=== PATIENT | female | born 1980 ===

== ENCOUNTER 2022-09-10 10:27 | Emergency (ER) | payer OTHER, SELFPAY ==
--- NOTE | ~2022-09-10 | CT_ITS ---
EXAMINATION: CT ABDOMEN AND PELVIS WITHOUT CONTRAST CLINICAL INFORMATION: Nausea and abdominal bloating. COMPARISON: None available. TECHNIQUE: Multidetector volumetric imaging was performed from the superior aspect of the liver through the pubic symphysis. Sagittal and coronal reformatted images were obtained on the technologist's workstation. This CT examination was performed using dose optimization techniques as appropriate, variously including the following: *Automated exposure control *Adjustment of mA and/or kV according to patient size (this includes techniques or standardized protocols for targeted exams where dose is matched to indication/reason for exam; i.e. extremities or head) *Use of iterative reconstruction technique DLP: 796. mGy-cm FINDINGS: LUNG BASES: The visualized lung bases are unremarkable. LIVER, GALLBLADDER, AND BILIARY TREE: The noncontrast liver is normal in size and contour. No biliary ductal dilatation is present. The gallbladder is surgically absent. PANCREAS: No ductal dilatation. SPLEEN: Not enlarged. ADRENAL GLANDS: No adrenal masses. KIDNEYS AND URETERS: The kidneys are symmetric in size. No hydronephrosis or perinephric stranding. BLADDER: Unremarkable. GASTROINTESTINAL TRACT: Wall thickening of the splenic flexure through the sigmoid colon. No significant surrounding inflammatory changes. No small bowel obstruction. Appendix is within normal limits. ABDOMINAL WALL: No significant hernia is appreciated. LYMPH NODES: No bulky abdominal or pelvic lymphadenopathy. VASCULAR: Normal caliber abdominal aorta. PELVIC VISCERA: 4.2 cm hypoattenuating lesion in the left ovary. OSSEOUS STRUCTURES: No destructive bone lesion. CT/CT abdomen pelvis wo IV con IMPRESSION: Wall thickening of the splenic flexure to the sigmoid colon may represent low-grade colitis. No surrounding inflammatory changes. No small bowel obstruction. Advise clinical correlation. 4.2 cm hypoattenuating lesion in the left ovary. This may be further evaluated with nonemergent pelvic ultrasound.
[2022-09-10 10:37] VITALS: BP 180/101; PULSE 90; RESP 20; TEMP 36.6; O2SAT 98; BMI 27.9
[2022-09-10 10:58] LABS: Basophils Percent Auto 0.3 % (0-2); Eosinophils Absolute Auto 0.1 X10*3/uL (0.0-0.4); Hematocrit 42.2 % (37.0-47.0); Hemoglobin 14.2 g/dl (12.0-16.0); Imm Gran Abs Auto 0.02 X10*3/uL (0.00-0.03); Imm Gran Pct Auto 0.3 % (0.0-0.4); Lymphocytes Absolute Auto 1.8 X10*3/uL (1.2-4.9); Lymphocytes Percent Auto 25.8 % (20-40); MANUAL DIFF FLAG NO; Mean Corpuscular HGB Conc 33.6 g/dl (31.0-35.0); Mean Corpuscular Hemoglobin 30.8 pg (27.0-33.0); Mean Corpuscular Volume 91.5 fL (80.0-98.0); Mean Platelet Volume 9.9 fL (9.4-12.3); Monocytes Absolute Auto 0.5 X10*3/uL (0.1-1.2); Monocytes Percent Auto 7.6 % (2-11); Neutrophils Absolute Auto 4.6 x10*3/uL (2.0-8.3); Platelet Count 247 X10*3/uL (160-400); Red Blood Count 4.61 X10*6/uL (4.20-5.50); Red Cell Distribution Width 12.7 % (11.0-16.0)
[2022-09-10 11:18] LABS: Alanine Aminotransferase 17 U/L (0-31); Albumin Level 3.9 g/dL (3.5-5.0); Alkaline Phosphatase 77 U/L (39-117); Anion Gap 13 (12-20); Aspartate Amino Transferase 18 U/L (5-31); Bilirubin Total 0.7 mg/dL (0.0-1.0); Blood Urea Nitrogen 13 mg/dL (9-16); Calcium 9.3 mg/dL (8.4-10.2); Carbon Dioxide 23 mmol/L (22-29); Chloride 109 mmol/L (96-108); Creatinine Clr Calc Pharmacy 149.9; Estimated Glomerular Filt Rate > 60; Glucose Random 97 mg/dL (60-115); Magnesium 1.8 mg/dL (1.6-2.6); Potassium 3.5 mmol/L (3.3-5.1); Sodium 141 mmol/L (135-145); Total Protein 7.4 g/dL (6.5-8.0)
--- NOTE | 2022-09-10 11:42 | ED.ABDPAIN ---
HPI - Abdominal Pain General Chief Complaint: Abdominal Pain Stated Complaint: abd pain and bloating Time Seen by Provider: 09/10/22 12:02 Source: patient Mode of arrival: ambulatory Limitations: no limitations History of Present Illness HPI narrative: This is a 42-year-old female presenting with abdominal bloating eating and soft stool/diarrhea for the past 3 weeks and nausea, vomiting the past few days. Patient reports she decided to come in today because she noted that her stool looked like jelly, and it was very foul smelling. Patient reports about 3 weeks ago she took metronidazole for BV, has been having issues since then. Also reports associated nausea, vomiting and abdominal distension. She reports diffuse abdominal discomfort and she just feels tired and weak. Patient denies fevers, chills, chest pain, shortness of breath, headache, vision changes, dizziness . Related Data Previous Rx's Medication Instructions Recorded loperamide 2 mg capsule 2 mg PO Q6H PRN loose stool #20 09/10/22 caps ondansetron 4 mg disintegrating 4 mg PO Q6H PRN nausea and 09/10/22 tablet vomiting #14 tabs Allergies Allergy/AdvReac Type Severity Reaction Status Date / Time No Known Allergies Allergy Verified 09/10/22 10:39 Review of Systems Review of Systems Constitutional : No Weight loss, No Fever, No Chills, No Fatigue, No Malaise ENT/Mouth : No sore throat, No Rhinorrhea Eyes: No Eye Pain, No Swelling, No Redness Cardiovascular : No Chest Pain, No SOB, No Dyspnea on Exertion, No Orthopnea, No Edema, No Palpitations Respiratory : No Cough, No Sputum, No Wheezing Gastrointestinal : + Nausea, + Vomiting, + Diarrhea, No Constipation, + abdominal Pain, No Hematochezia, No Melena Genitourinary : No Dysuria, No Urinary Frequency, No Hematuria, Musculoskeletal : No joint pain, No Myalgias, No Joint Swelling Skin : No Skin Lesions, No rash Neuro : No Weakness, No Numbness, No Dizziness, No Headache Psych : No Anxiety/Panic, No Depression All other systems reviewed and are negative Yes all other systems are reviewed and are negative [facility] Past Medical History Attestation statement: The following information was validated with the patient. Source: old records reviewed and nursing notes reviewed Social History Social History Alcohol intake: current Alcohol intake frequency: a few times a week Smoked in Last 30 Days: Yes Advance Directives: No Advance Directives Information Provided: No Patient : No Physical Exam ED Vital Signs: Vital Signs - 24 hr 09/10/22 10:37 09/10/22 14:21 Temperature 97.8 F 98.6 F Pulse Rate 90 72 Respiratory Rate 20 18 Blood Pressure 180/101 H 173/104 H Pulse Oximetry 98 99 Oxygen Delivery Method Room Air Room Air BMI result Body Mass Index 27.9 vss patient hypertensive in non med compliant, no headache, vision changes or dizziness concerning for hypertensive emergency. Also likely secondary to pain and discomfort. Appearance: Alert.? Oriented X3.? No acute distress.? Head: Normocephalic, atraumatic, no step-offs or deformities Eyes: Pupils equal, round and reactive to light.? Neck: Normal inspection.? Neck supple.? CVS: Normal heart rate and rhythm.? Pulses normal.? Respiratory: No respiratory distress.? Breath sounds normal.? Abdomen: Soft and lower abdominal discomfort.? Skin: Skin warm and dry.? Normal skin color.? Normal skin turgor.? Extremities: No lower extremity edema.? No calf ttp. 5/5 strength to bilateral upper and lower extremitieBack: No midline tenderness, no C-spine tenderness, full range of motion, no CVA tenderness bilaterally Neuro: Oriented X 3.? No motor deficit.? No sensory deficit. CN 2-12 intact Course Course Course Narrative: This is a rapid medical exam. Deferred additional HPI, ROS, PE to primary provider. 42yo female with history of HTN (noncompliant with medications), cholecystectomy here with intermittent abdominal pain w/ associated diarrhea, nausea, occasional vomiting, frequent urination x months. No fevers, chills, LMP currently Will check labs, UA VSS Reevaluation(s) Reevaluation #1: CBC appears to be within normal limits. Chemistry with no acute findings requiring intervention. Lipase within normal limits. UA without infection. GI panel pending. C diff pending. Time: 15:00 Reevaluation #2: Cdiff negative. GI panel pending and CT abd pelvis pending. Time: 15:31 Reevaluation #3: Patient now complaining of chest pain and shortness of breath troponin and EKG ordered, unlikely ACS based off of patient history likely reflux. GI cocktail ordered. CT of the abdomen and pelvis pending. Time: 16:01 Additional Reevaluation(s): [address] Jenkins if patients CT is normal can be dc home with pcp followup and pending stool studies. Trop pending and ct pending. Sign out to Randi Hernandez Medical Decision Making Medical Decision Making [facility] Narrative: 1523 42-year-old female presents with nausea vomiting, diarrhea, abdominal discomfort. Reports recent antibiotic use Physical exam with lower abdominal mild tenderness on palpation. Otherwise unremarkable physical exam however patient is noted to be hypertensive, history of hypertension however not med compliant. No papilledema, headache, vision changes, dizziness or signs of hypertensive urgency or emergency. Will rule out CT of, electrolyte abnormalities. Likely viral illness. Unlikely acute abdomen. Unlikely appendicitis, cholecystitis, diverticulitis, ovarian cyst, ovarian torsion, pancreatitis, SBP Plan labs, imaging, urine, stool studies. Differential Diagnosis Differential Diagnoses: The differential diagnosis associated with the presentation includes Will rule out CT of, electrolyte abnormalities. Likely viral illness. Unlikely acute abdomen. Unlikely appendicitis, cholecystitis, diverticulitis, ovarian cyst, ovarian torsion, pancreatitis, SBP Admission/Observation Consideration of admission/observation: Escalation of care including admission/observation considered unlikley Consult Healthcare Provider Management of the patient was discussed with: [employer] Operator (Belkis Jenkins ) Lab Data [facility] Lab Attestation statement: I reviewed the patient's lab results. 09/10/22 10:53 09/10/22 10:53 Labs: Lab Results 09/10/22 09/10/22 09/10/22 Range/Units 10:53 10:53 11:46 WBC 7.0 (4.8-10.8) X10*3/uL RBC 4.61 (4.20-5.50) X10*6/uL Hgb 14.2 (12.0-16.0) g/dl Hct 42.2 (37.0-47.0) % MCV 91.5 (80.0-98.0) fL MCH 30.8 (27.0-33.0) pg MCHC 33.6 (31.0-35.0) g/dl RDW 12.7 (11.0-16.0) % Plt Count 247 (160-400) X10*3/uL MPV 9.9 (9.4-12.3) fL Immature Gran % (Auto) 0.3 (0.0-0.4) % Neut % (Auto) 65.0 (45-73) % Lymph % (Auto) 25.8 (20-40) % [place] % (Auto) 7.6 (2-11) % Eos % (Auto) 1.0 (0-4) % Baso % (Auto) 0.3 (0-2) % Lymph # (Auto) 1.8 (1.2-4.9) X10*3/uL [place] # (Auto) 0.5 (0.1-1.2) X10*3/uL Eos # (Auto) 0.1 (0.0-0.4) X10*3/uL Baso # (Auto) 0.0 (0.0-0.2) X10*3/uL Abs Immat Gran (auto) 0.02 (0.00-0.03) X10*3/uL Absolute Neuts (auto) 4.6 (2.0-8.3) x10*3/uL Absolute Nucleated RBC 0.000 (0.0-0.012) X10*3/uL Nucleated RBC % (auto) 0.0 (0.0-0.2) /100WBC Sodium 141 (135-145) mmol/L Potassium 3.5 (3.3-5.1) mmol/L Chloride 109 H (96-108) mmol/L Carbon Dioxide 23 (22-29) mmol/L Anion Gap 13 (12-20) BUN 13 (9-16) mg/dL Creatinine 0.62 (0.5-1.4) mg/dL Estim Creat Clear Calc 149.9 Estimated GFR > 60 Random Glucose 97 (60-115) mg/dL Calcium 9.3 (8.4-10.2) mg/dL Magnesium 1.8 (1.6-2.6) mg/dL Total Bilirubin 0.7 (0.0-1.0) mg/dL AST 18 (5-31) U/L ALT 17 (0-31) U/L Alkaline Phosphatase 77 (39-117) U/L Total Protein 7.4 (6.5-8.0) g/dL Albumin 3.9 (3.5-5.0) g/dL Lipase 10 (8-78) U/L Urine Color Dark Yellow Urine Appearance Clear Urine pH 6.0 (5.0-9.0) Ur Specific [place] >= 1.030 H (1.005-1.025) Urine Protein 30 (1+) H (Neg-Trace) mg/dL Urine Glucose (UA) Negative (Negative) mg/dL Urine Ketones Negative (Negative) mg/dL Urine Blood Small (1+) H (Negative) Urine Nitrite Negative (Negative) Ur Leukocyte Esterase Negative (Negative) Urine RBC 6-10 H (0-2) /HPF Urine WBC 0-5 (0-5) /HPF Ur Squamous Epith Cells 0-2 (0-2) /HPF Urine Bacteria None Seen (None Seen) Hyaline Casts 0-2 (0-2) /LPF C. difficile Tox B Gene (Negative) 09/10/22 Range/Units 14:14 WBC (4.8-10.8) X10*3/uL RBC (4.20-5.50) X10*6/uL Hgb (12.0-16.0) g/dl Hct (37.0-47.0) % MCV (80.0-98.0) fL MCH (27.0-33.0) pg MCHC (31.0-35.0) g/dl RDW (11.0-16.0) % Plt Count (160-400) X10*3/uL MPV (9.4-12.3) fL Immature Gran % (Auto) (0.0-0.4) % Neut % (Auto) (45-73) % Lymph % (Auto) (20-40) % [place] % (Auto) (2-11) % Eos % (Auto) (0-4) % Baso % (Auto) (0-2) % Lymph # (Auto) (1.2-4.9) X10*3/uL [place] # (Auto) (0.1-1.2) X10*3/uL Eos # (Auto) (0.0-0.4) X10*3/uL Baso # (Auto) (0.0-0.2) X10*3/uL Abs Immat Gran (auto) (0.00-0.03) X10*3/uL Absolute Neuts (auto) (2.0-8.3) x10*3/uL Absolute Nucleated RBC (0.0-0.012) X10*3/uL Nucleated RBC % (auto) (0.0-0.2) /100WBC Sodium (135-145) mmol/L Potassium (3.3-5.1) mmol/L Chloride (96-108) mmol/L Carbon Dioxide (22-29) mmol/L Anion Gap (12-20) BUN (9-16) mg/dL Creatinine (0.5-1.4) mg/dL Estim Creat Clear Calc Estimated GFR Random Glucose (60-115) mg/dL Calcium (8.4-10.2) mg/dL Magnesium (1.6-2.6) mg/dL Total Bilirubin (0.0-1.0) mg/dL AST (5-31) U/L ALT (0-31) U/L Alkaline Phosphatase (39-117) U/L Total Protein (6.5-8.0) g/dL Albumin (3.5-5.0) g/dL Lipase (8-78) U/L Urine Color Urine Appearance Urine pH (5.0-9.0) Ur Specific [place] (1.005-1.025) Urine Protein (Neg-Trace) mg/dL Urine Glucose (UA) (Negative) mg/dL Urine Ketones (Negative) mg/dL Urine Blood (Negative) Urine Nitrite (Negative) Ur Leukocyte Esterase (Negative) Urine RBC (0-2) /HPF Urine WBC (0-5) /HPF Ur Squamous Epith Cells (0-2) /HPF Urine Bacteria (None Seen) Hyaline Casts (0-2) /LPF C. difficile Tox B Gene NEGATIVE (Negative) Independent Interpretation I performed an independent interpretation of an: EKG (Ventricular rate of 73, CO normal, QRS normal, QT/QTC normal EKG normal sinus rhythm incomplete right bundle-branch block. No ST elevations or inversions concerning for acute ischemia. ) Radiology Impression Discussion of test interpretation with radiology: I have reviewed the radiologist's reading. Core Measures AMI core measures followed: Yes Measure exclusions: not indicated Medications Administered Generic Name Dose Route Start Last Admin Trade Name Freq PRN Reason Stop Dose Admin Sodium Chloride 1,000 mls @ 999 mls/hr 09/10/22 15:45 09/10/22 15:40 Ns IV 09/10/22 16:45 999 mls/hr .Q1H1M DANE Administration Discontinued Medications Generic Name Dose Route Start Last Admin Trade Name Freq PRN Reason Stop Dose Admin Morphine Sulfate 4 mg 09/10/22 14:25 09/10/22 15:34 Morphine Sulfate 4 Mg/Ml Cartridge IVPUSH 09/10/22 14:26 4 mg ONCE ONE Administration Protocol Critical Care Time Critical Care Time Critical Care Time: Yes Total Critical Care Time: 35 Attestation: I attest to this time spent taking care of the patient, obtaining history, physical, reviewing labs, imaging, speaking to my attending, speaking to specialist. Discharge Plan Discharge Clinical Impression: Viral illness, Nausea & vomiting, Diarrhea, Chest pain Patient Disposition: Home, Self-Care Instructions: Acute Nausea and Vomiting (ED), Acute Diarrhea (ED), Viral Syndrome (ED), Nutrition Tips for Relief of Diarrhea (ED) Additional Instructions: Take your medications as prescribed. If you were prescribed antibiotics today, it is important that you take your medication to their entirety, do not skip any doses, do not finish them early. Follow-up with your primary care provider this week. Please follow-up with GI as soon as possible. Return to the emergency department with new or worsening symptoms. Such as fevers, chills, chest pain, shortness of breath, nausea, vomiting, dizziness, headache, vision changes, lethargy In case of emergency call 911 Stool studies pending Prescriptions: New loperamide 2 mg capsule 2 mg PO Q6H PRN (Reason: loose stool) Qty: 20 0RF ondansetron 4 mg tablet,disintegrating 4 mg PO Q6H PRN (Reason: nausea and vomiting) Qty: 14 0RF [place] [facility] [place] [facility] [place] Group] - 1 day Physician,None [Primary Care Provider] - 2 days
[2022-09-10 11:56] LABS: Appearance Urine Clear; Color Urine Dark Yellow; Glucose Urine UA Negative (Negative); Leukocyte Esterase Urine Negative (Negative); Nitrite Urine Negative (Negative); Specific Gravity - Urine >= 1.030 (1.005-1.025); UMIC TRIGGER UACC YES; Urine Blood Small (1+) (Negative); Urine Ketones Negative (Negative); Urine Protein 30 (1+) mg/dL (Neg-Trace)
[2022-09-10 11:58] LABS: Bacteria Urine None Seen (None Seen); Hyaline Casts Urine 0-2 /LPF (0-2); Squamous Epithelial Cell Urine 0-2 /HPF (0-2); WBC Urine 0-5 /HPF (0-5)
[2022-09-10 12:32] LABS: Lipase 10 U/L (8-78)
[2022-09-10 14:21] VITALS: BP 173/104; PULSE 72; RESP 18; TEMP 37; O2SAT 99
--- NOTE | 2022-09-10 14:23 | MHC.EDTECH ---
Talked to RN about patients BP. Patient stated that she does have high blood pressure and does not take her medication.
[2022-09-10 15:27] LABS: CDiff Gene PCR NEGATIVE (Negative)
[2022-09-10] MEDS: Morphine Sulfate 4 MG/ML CARTRIDGE IVPUSH (15:34)
[2022-09-10] MEDS: 0.9 % Sodium Chloride 1,000 ML 999 ML IV (15:40)
--- NOTE | 2022-09-10 15:59 | ECG_ITS ---
Test Reason : CP Blood Pressure : / mmHG Vent. Rate : 073 BPM Atrial Rate : 073 BPM P-R Int : 148 ms QRS Dur : 100 ms QT Int : 408 ms P-R-T Axes : 027 -13 023 degrees QTc Int : 449 ms Normal sinus rhythm Incomplete right bundle branch block Minimal voltage criteria for LVH, may be normal variant ( Coggon product ) Borderline ECG No previous ECGs available Referred By: Julieth Rodrigez Electronically Signed By:AILEEN MARIE MD
[2022-09-10] MEDS: PHENobarb/Hyoscy/Atropine/Scop 10 ML ELIXIR PO (16:11)
[2022-09-10] MEDS: Magnesium Hydrox/Alum Hydrox 30 ML ORAL.SUSP PO (16:11)
--- NOTE | 2022-09-10 16:31 | PC.NURSE ---
pt began complaining of epigastric pain, troponin and ekg obtained. medicated per the may. call glover within place.
[2022-09-10 16:57] LABS: Troponin-I High Sensitivity < 2.7 ng/L (<3.5-17.0)
[2022-09-10 18:59] VITALS: BP 181/101; PULSE 81; RESP 17; TEMP 36.9; O2SAT 99
[2022-09-10] MEDS: HYDROmorphone HCl 0.5 MG/0.5 ML SYRINGE IVPUSH (19:03)
--- NOTE | 2022-09-10 19:08 | PC.NURSE ---
Patient alert and oriented x3. reports 10/04 pain. bp 181/101 provider aware.
[2022-09-10 19:24] LABS: HCG Quantitative < 2 mIU/mL
[2022-09-11 07:20] LABS: Campylobacter Not Detected (Not Detect.); Plesiomonas shigelloides Not Detected (Not Detect.); Salmonella Not Detected (Not Detect.); Vibrio Not Detected (Not Detect.)
[2022-09-11 07:21] LABS: Adenovirus F 40/41 Not Detected (Not Detect.); Astrovirus Not Detected (Not Detect.); Cryptosporidium Not Detected (Not Detect.); Cyclospora cayetanensis Not Detected (Not Detect.); E. coli EAEC Not Detected (Not Detect.); E. coli EPEC Not Detected (Not Detect.); E. coli ETEC Not Detected (Not Detect.); E. coli STEC Not Detected (Not Detect.); Entamoeba histolytica Not Detected (Not Detect.); Giardia lamblia Not Detected (Not Detect.); Norovirus GI/GII Not Detected (Not Detect.); Rotavirus A Not Detected (Not Detect.); Sapovirus Not Detected (Not Detect.); Shigella sp./EIEC Not Detected (Not Detect.); Vibrio Cholerae Not Detected (Not Detect.); Yersinia enterocolitica Not Detected (Not Detect.)
== END 2022-09-10 20:31 | disposition home or self-care (01) ==
PROVIDERS: Nurse Practitioner Family; Physician Assistant; Physician Assistant Medical; Emergency Provider Emergency Medicine
DX: B34.9 Viral infection, unspecified (principal); R11.2 Nausea with vomiting, unspecified; R07.89 Other chest pain; Z20.822 Contact with and (suspected) exposure to COVID-19; Z20.828 Contact with and (suspected) exposure to other viral communicable diseases; Z79.899 Other long term (current) drug therapy
CPT/HCPCS: 36415; 74176; 80053; 81001; 83690; 83735; 84484; 84702; 85025; 87493; 87507; 93005; 96361; 96374; 96375; 99284; 99285; J1170; J2270

== ENCOUNTER 2022-10-25 10:19 | Outpatient (AMB) | payer OTHER, SELFPAY ==
--- NOTE | 2022-10-25 10:21 | MHC.OFFVIS ---
Intake Vital Signs 10/25/22 10:22 Height 5 ft 11 in Weight 231 lb 7.766 oz BMI 32.3 BP 140/78 H Blood Pressure Location Lt brachial Position Sitting Pulse 76 Intake Visit Reasons: Symptomatic Colitis Intake Note: Carisa presents in the office as a new patient for Symptomatic colitis. CC: She states that she was diagnosed with Colitis. Diarrhea, pains in the abdomen - severe bloating, Brning in the stomach, Fatigue. She states even water will cause burning in her stomach. Allergies No Known Allergies Allergy (Verified 10/25/22 10:23) HPI HPI Comments History of Present Illness Details 42 y.o F with PMH of HTN who has been having episodic abdominal pain x 1 year on the left side associated with bloating. She also experiences watery BMs with this which are nonbloody. Night time sx +. Urgency +, no tenesmus. No change in appetite, no unintentional weight loss. No fam hx of IBD. Father had ? CRC. Was seen in ER last month for severe sx as well. This was also in the context of taking ABx for a BV infection however C Diff and stool PCR was negative. CBC was normal, no white count. CT Abd/pel showed L sided colon wall thickening. Pt smokes 3 cigs in a week. Drinks 3-4times a week (2-3 beers, and 3-4 hard drinks per session). Prev drug use. PFSH Family History (Updated 10/25/22 @ 10:24 by KELL Dodson) Father Colon cancer Social History (Updated 10/25/22 @ 10:24 by KELL Dodson) Alcohol intake: current Alcohol intake frequency: a few times a week Patient Tobacco Use Status: Current someday Tobacco user Use of substances other than those prescribed or required for medical reasons: Yes Substance Use Type: Marijuana Physical Exam Vital Signs: Last Vital Signs Pulse 76 10/25/22 10:22 BP 140/78 H 10/25/22 10:22 BMI result Body Mass Index 32.3 Gen appear: NAD HEENT: nonicteric, no cervical lymphadenopathy Chest: CTA CVS: Regular S1/S2 Abd: soft, tender in LUQ and LLQ, nondistended, bowel sounds + Ext: no peripheral edema Neuro: A/Ox3, noted to move all extremities spontaneously Psych: interacting appropriately Assessment & Plan Assessment & Plan (1) Colon wall thickening: Code(s): K63.9 - Disease of intestine, unspecified (2) Abdominal pain: Code(s): R10.9 - Unspecified abdominal pain (3) Diarrhea: Code(s): R19.7 - Diarrhea, unspecified Plan DDx include IBD, celiac, SIBO, chronic infection, IBS. Work up ordered as below. Will also screen for HBV and HCV per guidelines. Pt will also be scheduled for a diagnostic colonoscopy for abnormal findings on CT and diarrhea. Will add on EGD if celiac serology positive. Split PEG prep instructions reveiwed and handout provided. Pt was advised that this may need to be expedited based on results of testing ordered. Follow up after colo. Orders: Orders Calprotectin, Fecal Today Z11.59 - Encounter for screening for other viral diseases, Z91.89 - Other specified personal risk factors, not elsewhere classified C Reactive Protein Today Z11.59 - Encounter for screening for other viral diseases, Z91.89 - Other specified personal risk factors, not elsewhere classified Immunoglobulin A Today Z11.59 - Encounter for screening for other viral diseases, Z91.89 - Other specified personal risk factors, not elsewhere classified Transglutaminase IgA Today Z11.59 - Encounter for screening for other viral diseases, Z91.89 - Other specified personal risk factors, not elsewhere classified Hepatitis B Surface Antibody Today Z11.59 - Encounter for screening for other viral diseases, Z91.89 - Other specified personal risk factors, not elsewhere classified Hepatitis A IgG Today Z11.59 - Encounter for screening for other viral diseases, Z91.89 - Other specified personal risk factors, not elsewhere classified Hepatitis B Core Antibody Today Z11.59 - Encounter for screening for other viral diseases, Z91.89 - Other specified personal risk factors, not elsewhere classified Hepatitis B Surface Antigen Today Z11.59 - Encounter for screening for other viral diseases, Z91.89 - Other specified personal risk factors, not elsewhere classified Hepatitis C Antibody Today Z11.59 - Encounter for screening for other viral diseases, Z91.89 - Other specified personal risk factors, not elsewhere classified HIV Ab/Ag Today Z11.59 - Encounter for screening for other viral diseases, Z91.89 - Other specified personal risk factors, not elsewhere classified TSH reflex Free T4 Today R19.7 - Diarrhea, unspecified Medications: New peg 3350-electrolytes 236-22.74-6.74 -5.86 gram (Golytely) as per split prep instructions, until fecal effluent is clear 240 mL PO Q10M 4,000 mL 0RF colonoscopy Coding Level of Care Code New Pt Level 4 (42688) Diagnoses Colon wall thickening K63.9 Abdominal pain R10.9 Diarrhea R19.7
[2022-10-25 10:22] VITALS: BP 140/78; PULSE 76; BMI 32.3
== END 2022-10-25 10:47 | disposition home or self-care (01) ==
PROVIDERS: Visit Provider Internal Medicine
DX: K63.9 Disease of intestine, unspecified (principal); R10.9 Unspecified abdominal pain; R19.7 Diarrhea, unspecified
CPT/HCPCS: 99204

== ENCOUNTER 2022-10-25 10:19 | Outpatient (REF) | payer OTHER, SELFPAY ==
[2022-10-25 13:08] LABS: C Reactive Protein 0.94 mg/dL (< or = 0.50)
[2022-10-25 13:27] LABS: TSH reflex Free T4 1.39 uIU/mL (0.32-4.0)
[2022-10-26 04:20] LABS: Hepatitis A Antibody IgG Nonreactive (Nonreactive); ~Hepatitis A Antibody IgG 0.26 S/CO (0.00-0.99)
[2022-10-26 04:30] LABS: HBS Num1 119.37 mIU/mL (0-7.99); HBc Num1 0.12 S/CO (0.00-0.79); HBsAGNum1 0.32 S/CO (0.00-0.99); HIV AB/AG Nonreactive (Nonreactive); HIV Num 1 0.05 S/CO (0.00-0.99); Hepatitis B Core Antibody Nonreactive (Nonreactive); Hepatitis B Surface Antigen Negative (Negative); ~HepC Num1 0.29 S/CO (0.00-0.79); ~Hepatitis B Surface Antibody REACTIVE (Nonreactive); ~Hepatitis C Antibody Nonreactive (Nonreactive)
[2022-10-27 17:28] LABS: Transglutaminase IgA <1.0 U/mL
[2022-10-27 17:33] LABS: Immunoglobulin A 460 mg/dL (47-310)
[2022-11-02 00:48] LABS: Calprotectin, Fecal 61 mcg/g
== END 2022-10-25 10:20 | disposition home or self-care (01) ==
LOC: HO.LAB 10:19
PROVIDERS: Visit Provider Internal Medicine
DX: Z11.59 Encounter for screening for other viral diseases (principal); Z11.4 Encounter for screening for human immunodeficiency virus [HIV]; Z91.89 Other specified personal risk factors, not elsewhere classified; K63.9 Disease of intestine, unspecified; R10.9 Unspecified abdominal pain; R19.7 Diarrhea, unspecified
CPT/HCPCS: 36415; 82784; 83993; 84443; 86140; 86364; 86704; 86706; 86708; 86803; 87340; 87389; 99202

== ENCOUNTER 2022-12-03 10:36 | Day surgery (SDC) | payer OTHER, SELFPAY ==
--- NOTE | 2022-12-02 13:10 | P.CONAN_ITS ---
Documented by User: Cyndy Jesus NP 12/02/22 13:10 PMF[facility] Active Problems Active Problems: All Active Problems (Updated 10/25/22 @ 10:44 by Michelle Rowland MD) Abdominal pain (Acute) Colon wall thickening (Acute) Encounter for HCV screening test for high risk patient (Acute) Family History Family History (Updated 10/25/22 @ 10:24 by KELL Dodson) Father Colon cancer Social History Social History (Updated 10/25/22 @ 10:24 by KELL Dodson) Alcohol intake: current Alcohol intake frequency: a few times a week Patient Tobacco Use Status: Current someday Tobacco user Substance Use Type: Marijuana Advance Directives: No Advance Directives Information Provided: Yes Meds Allergies Allergy/AdvReac Type Severity Reaction Status Date / Time No Known Allergies Allergy Verified 10/25/22 10:23 Exam Exam Date and Time: December 02, 2022 1310 Pertinent Lab Results Pertinent Lab Results: Laboratory Tests 09/10/22 10:53 WBC 7.0 Hgb 14.2 Hct 42.2 Plt Count 247 Sodium 141 Potassium 3.5 Chloride 109 H Carbon Dioxide 23 BUN 13 Creatinine 0.62 Assessment and Plan Assessment Anesthesia Assessment: Chart Reviewed Documented by User: Arleen Mcclure MD 12/03/22 10:50 [facility] Family History Family History (Updated 10/25/22 @ 10:24 by KELL Dodson) Father Colon cancer Family history of problems with anesthesia: No Surgical History History of Problems with Anesthesia: No Social History Social History (Updated 10/25/22 @ 10:24 by KELL Dodson) Alcohol intake: current Alcohol intake frequency: a few times a week Patient Tobacco Use Status: Current someday Tobacco user Substance Use Type: Marijuana Advance Directives: No Advance Directives Information Provided: Yes Meds Allergies Allergy/AdvReac Type Severity Reaction Status Date / Time No Known Allergies Allergy Verified 10/25/22 10:23 Exam Airway Mallampati Class: II TM Dist: >3cm Neck ROM: Full Assessment and Plan Assessment Anesthesia Assessment: Anesthesia Plan Discussed Final Anesthetic Review Family History of Problems with Anesthesia: No History of Problems with Anesthesia: No NPO: Yes ASA Class: II Final Preanesthetic Review: No Changes in Pt Med Stat, Meds/Allgs Chart Reviewed, Consent Obtained/Reviewed and Anes Risks/Benef Reviewed Patient Risk: Low Procedure Risk: Low Anesthetic Plan Anesthetic Plan: MAC: Disposition: Standard PACU
[2022-12-03 10:52] VITALS: BMI 30.7
[2022-12-03 10:59] LABS: UPreg QC Valid YES; Urine Pregnancy NEGATIVE (NEGATIVE)
[2022-12-03 11:00] VITALS: BP 179/104; PULSE 79; RESP 18; TEMP 36.7; O2SAT 98
[2022-12-03] MEDS: Lactated Ringers 1,000 ML 100 ML IVCONT (11:05)
[2022-12-03 11:20] VITALS: BP 169/97
--- NOTE | 2022-12-03 11:43 | P.OP_ITS ---
Operative Note Operative Note Date of Service: 12/03/22 Narrative: Procedure: Colonoscopy Indication: Abnormal CT scan, fam hx of CRC Endoscopist: Michelle Rowland MD Anesthesia Provider: Erin Parry CRNA, Amarilys Dow CRNA Anesthesia type: MAC Instrument: Olympus [id number]-[id number] Consent: Indication, risks vs benefits, and alternatives were discussed with the patient who gave written informed consent to proceed. EKG, pulse, pulse oximetry and blood pressure were monitored throughout the procedure. Please see anesthesia flowsheet. Procedure: The patient was brought to the procedure room and placed in the left lateral decubitus position. IV medications were administered by the anesthesia provider in attendance. A digital rectal exam was performed which was normal. A distal attachment cap was affixed to the tip of the colonoscope was then inserted through the anus and advanced through the colon to the cecum at 75 cm,and terminal ileum. Mucosa was carefully examined under high definition white light as the instrument was slowly withdrawn in a retrograde panoramic fashion. Retroflexion was performed in rectum. The procedure was not difficult. There were no immediate obvious complications. The quality of the prep was BBPS: 2+2+2 = adequate Withdrawal time 9 minutes. Limitations: No limitations. Findings: Mucosa: Normal to cecum and terminal ileum. Cold forceps biopsies were taken from right and left side of the colon and sent for histology. Protruding lesions: * Medium internal hemorrhoids without stigmata of recent bleeding. Impression: 1. Normal colon and terminal ileum mucosa (biopsy) 2. Internal hemorrhoids Recommendations: - Follow path results. - Repeat colonoscopy in 5 years due to hx of CRC in father.
--- NOTE | 2022-12-03 11:43 | MHC.SHP ---
Pre-Procedural Eval Section A Date of Service: 12/03/22 Section B Chief Complaint: Abnormal CT Scan Relevant Family History (Specify if Yes): Yes Relevant Social History: Tobacco Use Present Medications: see Short Stay Collaborative assessment Medical History: No relevant PMH History of Previous Operations: No relevant previous surgery Allergies: Allergies Allergy/AdvReac Type Severity Reaction Status Date / Time No Known Allergies Allergy Verified 12/03/22 11:00 Review of Systems Review of Systems Comment: Ten point ROS as previously documented Exam Exam Comment: Gen appear: No acute distress HEENT: no icterus Chest: No overt resp distress Abd: soft, nontender, nondistended Psych: Stable affect, answering questions appropriately Neuro: A/Ox3 noted to move all extremities spontaneously Ext: no peripheral edema Plan Diagnosis/Plan: Unchanged I have reviewed the history and physical and performed a pertinent physical examination on my patient. No changes have occurred unless specified. Time Spent With Patient Time: Total time managing care of this patient today ____ minutes.
[2022-12-03 12:29] VITALS: BP 124/86; PULSE 75; RESP 16; TEMP 37; O2SAT 99
[2022-12-03 12:44] VITALS: BP 147/91; PULSE 74; RESP 16; TEMP 37; O2SAT 100
== END 2022-12-03 13:55 | disposition home or self-care (01) ==
PROVIDERS: Nurse Practitioner; PCP Nurse Practitioner Primary Care; Visit Provider Internal Medicine
PROC: 0DJD8ZZ Inspection of Lower Intestinal Tract, Via Natural or Artificial Opening Endoscopic (ICD-10-PCS; CPT 45378; principal; 2022-12-03 12:20)
DX: R93.89 Abnormal findings on diagnostic imaging of other specified body structures (principal); Z80.0 Family history of malignant neoplasm of digestive organs; K52.9 Noninfective gastroenteritis and colitis, unspecified; K64.8 Other hemorrhoids; K21.9 Gastro-esophageal reflux disease without esophagitis; I10 Essential (primary) hypertension; Z90.49 Acquired absence of other specified parts of digestive tract; F17.210 Nicotine dependence, cigarettes, uncomplicated; F12.90 Cannabis use, unspecified, uncomplicated
CPT/HCPCS: 45380; 81025; 88305; J2250

== ENCOUNTER → 2022-12-03 10:36 | Outpatient (BNV) | payer OTHER, SELFPAY | PROVIDERS: PCP Nurse Practitioner Primary Care; Visit Provider Internal Medicine | DX: R93.89 Abnormal findings on diagnostic imaging of other specified body structures (principal); Z80.0 Family history of malignant neoplasm of digestive organs; K64.9 Unspecified hemorrhoids | CPT/HCPCS: 45380 ==

== ENCOUNTER 2022-12-28 10:41 | Outpatient (AMB) | payer OTHER, SELFPAY ==
--- NOTE | 2022-12-28 11:05 | A.OFFVIS_ITS ---
Intake Vital Signs 12/28/22 11:07 Height 5 ft 11 in Weight 233 lb 11.04 oz BMI 32.6 Intake Visit Reasons: s/p colon Intake Note: Carisa presents in the office as a follow up colonoscopy. CC: She states that she has pains in her stomach. She states that she normally has diarrhea but with the medication Dicyclomine she feels it is giving her con stipation. Allergies No Known Allergies Allergy (Verified 12/28/22 11:07) HPI HPI Comments History of Present Illness Details 42 y.o F with PMH of HTN who is here for follow up of abdominal pain and diarrhea. 10/25/22: Has been having episodic abdominal pain x 1 year on the left side associated with bloating. She also experiences watery BMs with this which are nonbloody. Night time sx +. Urgency +, no tenesmus. No change in appetite, no unintentional weight loss. No fam hx of IBD. Father had ? CRC. Was seen in ER last month for severe sx as well. This was also in the context of taking ABx for a BV infection however C Diff and stool PCR was negative. CBC was normal, no white count. CT Abd/pel showed L sided colon wall thickening. Pt smokes 3 cigs in a week. Drinks 3-4times a week (2-3 beers, and 3-4 hard drinks per session). Prev drug use. 12/03/22: Impression: 1. Normal colon and terminal ileum mucos a (biopsy) 2. Internal hemorrhoids Path: A. Colon, right, biopsy: Colonic mucosa within normal limits; negative for active, chronic or microscopic colitis. B. Colon, left, biopsy: Colonic mucosa within normal limits; negative for active, chronic or microscopic colitis 12/28/22: Initially had some response to bentyl but continues to have abd bloating and frequent BMs. Bloating improves with passing BM. Reports abd discomfort too but attributes that mainly to the level of distention and bloating. [place] and path results reviewed. [facility] Medical History GERD (gastroesophageal reflux disease) Hypertension Surgical History Hx of colonoscopy Hx of wisdom tooth extraction Hx of cholecystectomy Family History Father Colon cancer Social History Alcohol intake: current Alcohol intake frequency: a few times a week Patient Tobacco Use Status: Current someday Tobacco user Substance Use Type: Marijuana Review of Systems Const All systems reviewed & are unremarkable except as noted in HPI and below Physical Exam Vital Signs: BMI result Body Mass Index 32.6 Gen appear: NAD HEENT: nonicteric, no cervical lymphadenopathy Chest: CTA CVS: Regular S1/S2 Abd: soft, nontender, nondistended, bowel sounds + Ext: no peripheral edema Neuro: A/Ox3, noted to move all extremities spontaneously Psych: interacting appropriately Assessment & Plan Assessment & Plan (1) Abdominal pain: Code(s): R10.9 - Unspecified abdominal pain (2) Diarrhea: Code(s): R19.7 - Diarrhea, unspecified (3) Bloating: Code(s): R14.0 - Abdominal distension (gaseous) Plan Based on work up above, most consistent with IBS-D. Other Ddx include SIBO. Limited response to bentyl. Will give a trial of Rifaximin 550 TID which should help with sx of both SIBO as well as IBS-D. Pt was given good Rx coupon as well as encouraged to sign up for the coupon through [email or web address] Bentyl PRN. Pt to call us if no response to above otherwise follow up PRN. Medications: New rifaximin 550 mg PO TID 14 days 42 tabs 0RF Refilled dicyclomine 10 mg PO TID PRN 90 caps 1RF abdominal pain Coding Level of Care Code Est Pt Level 4 (06237) Diagnoses Abdominal pain R10.9 Diarrhea R19.7 Bloating R14.0
[2022-12-28 11:07] VITALS: BMI 32.6
== END 2022-12-28 12:17 | disposition home or self-care (01) ==
PROVIDERS: Visit Provider Internal Medicine
DX: R10.9 Unspecified abdominal pain (principal); R19.7 Diarrhea, unspecified; R14.0 Abdominal distension (gaseous)
CPT/HCPCS: 99214

== ENCOUNTER → 2022-12-28 10:41 | Outpatient (BNVA) | payer OTHER, SELFPAY | PROVIDERS: Visit Provider Internal Medicine | DX: R10.9 Unspecified abdominal pain (principal); R19.7 Diarrhea, unspecified; R14.0 Abdominal distension (gaseous); Z98.890 Other specified postprocedural states | CPT/HCPCS: 99212 ==

== ENCOUNTER 2023-05-02 10:42 | Outpatient (AMB) | payer OTHER, SELFPAY ==
[2023-05-02 10:52] VITALS: BP 147/107; PULSE 75; BMI 32.0
--- NOTE | 2023-05-02 10:52 | MHC.OFFVIS ---
Intake Vital Signs 05/02/23 10:52 Height 5 ft 11 in Weight 229 lb 4.492 oz BMI 32.0 BP 147/107 H Blood Pressure Location Lt brachial Position Sitting Pulse 75 Intake Visit Reasons: 4 month follow up Intake Note: Carisa presents in the office as a follow up of abdominal pain. CC: She c/o abdominal pain, nausea, and burning sensation. Per patient she can't even drink a cup of water in the morning because it sends her to the bathroom with diarrhea. She reports that the medications helped at first but they are not working right now. Hand Reamer Required: No Accompanied by: Self / Same As Patient Allergies No Known Allergies Allergy (Verified 05/02/23 10:59) HPI HPI Comments History of Present Illness Details 42 y.o F with PMH of HTN who is here for follow up of abdominal pain and diarrhea. 10/25/22: Has been having episodic abdominal pain x 1 year on the left side associated with bloating. She also experiences watery BMs with this which are nonbloody. Night time sx +. Urgency +, no tenesmus. No change in appetite, no unintentional weight loss. No fam hx of IBD. Father had ? CRC. Was seen in ER last month for severe sx as well. This was also in the context of taking ABx for a BV infection however C Diff and stool PCR was negative. CBC was normal, no white count. CT Abd/pel showed L sided colon wall thickening. Pt smokes 3 cigs in a week. Drinks 3-4times a week (2-3 beers, and 3-4 hard drinks per session). Prev drug use. 12/03/22: Impression: 1. Normal colon and terminal ileum mucosa (biopsy) 2. Internal hemorrhoids Path: A. Colon, right, biopsy: Colonic mucosa within normal limits; negative for active, chronic or microscopic colitis. B. Colon, left, biopsy: Colonic mucosa within normal limits; negative for active, chronic or microscopic colitis 12/28/22: Initially had some response to bentyl but continues to have abd bloating and frequent BMs. Bloating improves with passing BM. Reports abd discomfort too but attributes that mainly to the level of distention and bloating. [place] and path results reviewed. 05/02/23: Had improvement in symptoms for 6 weeks with rifaximin. Now continues to have diffuse abd pain with diarrhea. Gets better after passing BMs. BMs are watery but scant goes 7-8 times. Does not report much improvement in abdominal cramping with dicyclomine. Did not take any fiber in the interim. [facility] Medical History GERD (gastroesophageal reflux disease) Hypertension Surgical History Hx of colonoscopy Hx of wisdom tooth extraction Hx of cholecystectomy Family History Father Colon cancer Social History Alcohol intake: current Alcohol intake frequency: a few times a week Patient Tobacco Use Status: Current someday Tobacco user Substance Use Type: Marijuana Review of Systems Const All systems reviewed & are unremarkable except as noted in HPI and below Physical Exam Vital Signs: Last Vital Signs Pulse 75 05/02/23 10:52 BP 147/107 H 05/02/23 10:52 BMI result Body Mass Index 32.0 Gen appear: NAD HEENT: nonicteric, no cervical lymphadenopathy Chest: CTA CVS: Regular S1/S2 Abd: soft, nontender, nondistended, bowel sounds + Ext: no peripheral edema Neuro: A/Ox3, noted to move all extremities spontaneously Psych: interacting appropriately Assessment & Plan Assessment & Plan (1) Abdominal pain: Code(s): R10.9 - Unspecified abdominal pain (2) Diarrhea: Code(s): R19.7 - Diarrhea, unspecified (3) Bloating: Code(s): R14.0 - Abdominal distension (gaseous) Plan Discussed with the patient that diagnosis consistent with IBS D. Will switch Bentyl for hyoscyamine. Also recommend to take Imodium p.r.n. for loose bowel movements. If minimal control of symptoms with the above, low threshold to proceed with tricyclic antidepressant for control of global symptoms as well as diarrhea. Follow-up in 4 months Medications: New hyoscyamine sulfate 0.125 mg PO BID-TID PRN 90 tabs 0RF abdominal discomfort loperamide (Imodium A-D) 2 mg PO BID PRN 60 tabs 0RF loose stool Discontinued dicyclomine Discontinued Reason: Duplicate 10 mg PO TID PRN 90 caps 1RF for pain ibuprofen Discontinued Reason: Doctor's Order 800 mg PO TID 5 days 15 tabs 0RF Coding Level of Care Code Est Pt Level 3 (18059) Diagnoses Abdominal pain R10.9 Diarrhea R19.7 Bloating R14.0
== END 2023-05-02 11:31 | disposition home or self-care (01) ==
PROVIDERS: Visit Provider Internal Medicine
DX: R10.9 Unspecified abdominal pain (principal); R19.7 Diarrhea, unspecified; R14.0 Abdominal distension (gaseous)
CPT/HCPCS: 99213

== ENCOUNTER → 2023-05-02 10:42 | Outpatient (BNVA) | payer OTHER, SELFPAY | PROVIDERS: Visit Provider Internal Medicine | DX: R10.9 Unspecified abdominal pain (principal); R19.7 Diarrhea, unspecified; R14.0 Abdominal distension (gaseous) | CPT/HCPCS: 99212 ==